=== PATIENT | female | born 1985 | race Two or more races ===

== ENCOUNTER 2021-02-07 15:37 | Observation (INO) | payer MEDICAID ==
[~2021-02-07] VITALS: Ht 160 cm; Wt 74.4 kg
[2021-02-07] MEDS ORDERED: PREN-96 PO (16:44)
== END 2021-02-07 17:00 | disposition home or self-care (01) ==
LOC: LDRP 15:37
PROVIDERS: ADMIT Obstetrics & Gynecology; ATTEND Obstetrics & Gynecology
DX: O24.419 Gestational diabetes mellitus in pregnancy, unspecified control (principal); Z3A.33 33 weeks gestation of pregnancy; Z88.0 Allergy status to penicillin
CPT/HCPCS: 59025; 76818; 81002; 82948; 82962; G0378

== ENCOUNTER 2021-02-14 10:19 | Observation (INO) | payer MEDICAID ==
[~2021-02-14 10:19] MED LIST: PREN-96 PO
[2021-02-14] MEDS ORDERED: GLYB1.257 PO (16:57)
== END 2021-02-14 17:16 | disposition home or self-care (01) ==
LOC: LDRP 16:06
PROVIDERS: ADMIT Obstetrics & Gynecology; ATTEND Obstetrics & Gynecology
DX: O24.419 Gestational diabetes mellitus in pregnancy, unspecified control (principal); Z3A.34 34 weeks gestation of pregnancy
CPT/HCPCS: 59025; 76818; 81002; 82962; 94760; G0378; G0379

== ENCOUNTER 2021-02-18 10:05 | Observation (INO) | payer MEDICAID ==
[~2021-02-18 10:05] MED LIST changes: +GLYB1.257 PO
== END 2021-02-18 12:39 | disposition home or self-care (01) ==
LOC: LDRP 10:40
PROVIDERS: ADMIT Obstetrics & Gynecology; ATTEND Obstetrics & Gynecology
DX: O24.419 Gestational diabetes mellitus in pregnancy, unspecified control (principal); Z3A.34 34 weeks gestation of pregnancy
CPT/HCPCS: 59025; 76818; 81002; 82962; 94760; G0378

== ENCOUNTER 2021-02-25 11:15 | Observation (INO) | payer MEDICAID | END 2021-02-25 14:12 | disposition home or self-care (01) | LOC: LDRP 11:15 | PROVIDERS: ADMIT Obstetrics & Gynecology; ATTEND Obstetrics & Gynecology | DX: O60.03 Preterm labor without delivery, third trimester (principal); O24.419 Gestational diabetes mellitus in pregnancy, unspecified control; Z3A.35 35 weeks gestation of pregnancy; Z88.0 Allergy status to penicillin | CPT/HCPCS: 59025; 76818; 81002; 82948; 82962; 94760; G0378 ==

== ENCOUNTER 2021-03-04 08:34 | Observation (INO) | payer MEDICAID ==
[~2021-03-04] VITALS: Ht 160 cm; Wt 72.6 kg
== END 2021-03-04 10:38 | disposition home or self-care (01) ==
LOC: LDRP 09:01
PROVIDERS: ADMIT Obstetrics & Gynecology; ATTEND Obstetrics & Gynecology
DX: O24.419 Gestational diabetes mellitus in pregnancy, unspecified control (principal); Z3A.36 36 weeks gestation of pregnancy; Z79.899 Other long term (current) drug therapy; Z98.890 Other specified postprocedural states
CPT/HCPCS: 59025; 76818; 81002; 82948; 82962; 94760; G0378; G0379

== ENCOUNTER 2021-03-06 08:52 | Observation (INO) | payer MEDICAID ==
[~2021-03-06] VITALS: Ht 160 cm; Wt 72.6 kg
== END 2021-03-07 11:25 | disposition home or self-care (01) ==
LOC: LDRP 03-07 09:30
PROVIDERS: ADMIT Obstetrics & Gynecology; ATTEND Obstetrics & Gynecology
DX: O24.419 Gestational diabetes mellitus in pregnancy, unspecified control (principal); Z3A.37 37 weeks gestation of pregnancy; Z88.0 Allergy status to penicillin
CPT/HCPCS: 59025; 76818; 81002; 82948; 82962; G0378; G0379

== ENCOUNTER 2021-03-11 08:41 | Observation (INO) | payer MEDICAID ==
[~2021-03-11] VITALS: Ht 160 cm; Wt 73.0 kg
== END 2021-03-11 11:45 | disposition home or self-care (01) ==
LOC: LDRP 09:21
PROVIDERS: ADMIT Obstetrics & Gynecology; ATTEND Obstetrics & Gynecology
DX: O24.419 Gestational diabetes mellitus in pregnancy, unspecified control (principal); Z3A.37 37 weeks gestation of pregnancy; Z88.0 Allergy status to penicillin
CPT/HCPCS: 59025; 76818; 81002; 82948; 82962; G0378

== ENCOUNTER 2021-03-13 08:14 | Observation (INO) | payer MEDICAID | END 2021-03-13 09:40 | disposition home or self-care (01) | LOC: LDRP 08:14 | PROVIDERS: ADMIT Obstetrics & Gynecology; ATTEND Obstetrics & Gynecology | DX: O24.415 Gestational diabetes mellitus in pregnancy, controlled by oral hypoglycemic drugs (principal); Z3A.37 37 weeks gestation of pregnancy; Z79.84 Long term (current) use of oral hypoglycemic drugs; Z88.0 Allergy status to penicillin | CPT/HCPCS: 59025; 76818; 81002; 82948; 82962; G0378 ==

== ENCOUNTER 2021-03-14 10:20 | Observation (INO) | payer MEDICAID | END 2021-03-17 10:22 | disposition home or self-care (01) | LOC: LDRP 03-17 08:15 | PROVIDERS: ADMIT Obstetrics & Gynecology; ATTEND Obstetrics & Gynecology | DX: O24.419 Gestational diabetes mellitus in pregnancy, unspecified control (principal); Z3A.38 38 weeks gestation of pregnancy; Z88.0 Allergy status to penicillin | CPT/HCPCS: 59025; 76818; 81002; 82948; 82962; 94760; G0378 ==

== ENCOUNTER 2021-03-19 10:57 | Observation (INO) | payer MEDICAID | END 2021-03-19 13:15 | disposition home or self-care (01) | LOC: LDRP 10:57 | PROVIDERS: ADMIT Obstetrics & Gynecology; ATTEND Obstetrics & Gynecology | DX: O24.419 Gestational diabetes mellitus in pregnancy, unspecified control (principal); Z3A.38 38 weeks gestation of pregnancy | CPT/HCPCS: 59025; 76818; 81002; 82962; 94760; G0378 ==

== ENCOUNTER 2021-03-21 08:16 | Inpatient (IN) | payer MEDICAID ==
[~2021-03-21] VITALS: Ht 160 cm; Wt 72.6 kg
[2021-03-21] MEDS ORDERED: PROMETHAZINE HCL 25 MG/ML 1ML IM PRN (21:15)
[2021-03-21] MEDS ORDERED: DERMOPLAST 60ML BOTTLE TOP PRN (21:15)
[2021-03-21] MEDS ORDERED: LACT. RINGERS/OXYTOCIN 20UNITS 500 ML IV ONE ×2 (21:15→21:45)
[2021-03-21] MEDS ORDERED: WITCH HAZEL-GLYCERIN PAD TOP PRN (21:15)
[2021-03-21] MEDS ORDERED: LIDOCAINE 2%HCL (LOCAL ANESTH.) INJ 20ML MDV IJ PRN (21:15)
[2021-03-21] MEDS ORDERED: LACT. RINGERS/OXYTOCIN 20UNITS 1,000 ML IV SCH (21:15)
[2021-03-21] MEDS ORDERED: TERBUTALINE SULFATE 1 MG/ML 1ML VIAL SC PRN ×2 (21:15)
[2021-03-21] MEDS ORDERED: PHISODERM TOP SOLN 240ML BTL TOP PRN (21:15)
[2021-03-21] MEDS ORDERED: BUTORPHANOL TARTRATE 2 MG/1 ML VIAL IV PRN ×2 (21:15)
[2021-03-21] MEDS ORDERED: PROMETHAZINE HCL 25 MG/ML 1ML IV PRN (21:15)
[2021-03-21] MEDS: LACTATED RINGER'S 1,000 ML IV SCH (21:51)
[2021-03-21] MEDS ORDERED: ACCU-CHEK COMFORT CURVE STRIP VI SCH (22:00)
[2021-03-21 22:44] LABS: Basophils # (auto) 0 10 ^3/uL (0-0.2); Basophils % (auto) 0.2 % (0.0-2.0); Eosinophils # (auto) 0.1 10 ^3/uL (0-0.8); Eosinophils % (auto) 0.9 % (0.0-7.0); Hematocrit 37.2 % (36.0-46.0); Hemoglobin 12.9 g/dL (12.2-16.2); Lymphocytes # (auto) 1.9 10 ^3/uL (0.4-5.4); Lymphocytes % (auto) 26.2 % (10.0-50.0); Mean Corpuscular Hemoglobin 33.5 pg (28.0-32.0); Mean Corpuscular Hgb Conc. 34.7 g/dL (32.0-36.0); Mean Corpuscular Volume 96.5 fL (80.0-100.0); Monocytes # (auto) 0.7 10 ^3/uL (0-1.3); Monocytes % (auto) 9.6 % (0.0-12.0); Neutrophils # (auto) 4.6 10 ^3/uL (1.6-8.6); Neutrophils % (auto) 63.1 % (37.0-80.0); Red Blood Cells 3.86 10^6/uL (4.0-5.20); Red Cell Distribution Width 13.6 % (11.8-14.3); White Blood Cell 7.3 10^3/uL (4.4-10.8)
[2021-03-21 22:48] LABS: Urine Bacteria FEW /hpf (None Seen); Urine Blood Negative /uL (Negative); Urine WBC 12 /hpf (0 - 5)
[2021-03-21 23:00] LABS: Alcohol, Urine < 3.0 mg/dL (0-10); Amphetamine Screen, Urine NEGATIVE (NEGATIVE); Barbiturate Scree,Urine NEGATIVE (NEGATIVE); Benzodiazephine Screen, Urine NEGATIVE (NEGATIVE); Cannabinoid Screen, Urine NEGATIVE (NEGATIVE); Cocaine Screen, Urine NEGATIVE (NEGATIVE); Opiate Scree,Urine NEGATIVE (NEGATIVE); Phencyclidine Screen, Urine NEGATIVE (NEGATIVE)
[2021-03-21 23:00] LABS: Albumin 2.7 g/dL (3.4-5.0); Potassium 3.6 mmol/L (3.5-5.1)
[2021-03-21 23:01] LABS: INR 0.95 (0.9-1.15); Partial Thromboplastin Time 27.1 sec (23.6-33.0)
[2021-03-21 23:04] LABS: BUN/Creatinine Ratio 23.1; Bilirubin, Total 0.2 mg/dL (0.2-1.0); Total Protein 6.6 g/dL (6.4-8.2)
[2021-03-21] MEDS: miSOPROStol 50 MCG per PRE-CUT 1/2 TAB PO PRN (23:04)
[2021-03-22] MEDS: LACTATED RINGER'S 1,000 ML IV SCH ×3 (03:16→12:52)
[2021-03-22] MEDS: miSOPROStol 50 MCG per PRE-CUT 1/2 TAB PO PRN (03:47)
[2021-03-22] MEDS ORDERED: miSOPROStol 100 mcg TAB PR PRN (07:45)
[2021-03-22] MEDS ORDERED: miSOPROStol 100 mcg TAB SL PRN (07:45)
[2021-03-22] MEDS ORDERED: METHYLERGONOVINE MALEATE 0.2 MG/ML AMP IM PRN (07:45)
[2021-03-22] MEDS ORDERED: NALOXONE HCL 0.4 MG/ML VIAL IV ONE (12:00)
[2021-03-22] MEDS ORDERED: fentaNYL CITRATE 100 MCG/2 ML VL IV ONE (12:00)
[2021-03-22] MEDS ORDERED: LACTATED RINGER'S 1,000 ML IV ONE (12:00)
[2021-03-22] MEDS ORDERED: ROPIVACAINE HCL 200 ML EPI SCH (12:00)
[2021-03-22] MEDS ORDERED: LIDOCAINE HCL 2 %PF INJ 10ML AMP IJ ONE (12:00)
[2021-03-22] MEDS ORDERED: ePHEDrine SULFATE 50 MG/ML AMP IV ONE (12:00)
[2021-03-22] MEDS ORDERED: ACETAMINOPHEN 325 MG TAB PO PRN (15:45)
[2021-03-22] MEDS ORDERED: ONDANSETRON ODT 4 MG TAB PO PRN (15:45)
[2021-03-22] MEDS ORDERED: IBUPROFEN 800 MG TAB PO SCH (18:00)
[2021-03-22 19:00] VITALS: BP 103/57
[2021-03-22] MEDS: CLINDAMYCIN 600MG IV 50 ML IV SCH (19:08)
[2021-03-22] MEDS: IBUPROFEN 600 MG TAB PO PRN (19:09)
[2021-03-22] MEDS ORDERED: DOCUSATE SOD 100 MG CAP PO SCH (22:00)
[2021-03-22 22:56] VITALS: BP 107/59
[2021-03-23 03:17] VITALS: BP 104/64
[2021-03-23] MEDS: IBUPROFEN 600 MG TAB PO PRN ×2 (03:31→15:59)
[2021-03-23] MEDS: CLINDAMYCIN 600MG IV 50 ML IV SCH (03:31)
[2021-03-23 07:00] VITALS: BP 98/60
[2021-03-23 07:06] LABS: RPR Non Reactive (Non Reactive)
[2021-03-23 11:00] VITALS: BP 100/54
[2021-03-23 14:42] VITALS: BP 112/59
[2021-03-23 19:00] VITALS: BP 110/68
[2021-03-23 23:00] VITALS: BP 97/56
[2021-03-24] MEDS ORDERED: diphenhdrAMINE HCL 50 MG/1 ML VL IV ONE (00:30)
[2021-03-24 03:00] VITALS: BP 99/55
[2021-03-24 07:30] VITALS: BP 109/55
[2021-03-24] MEDS ORDERED: TETANUS-DIPTH-ACEL PERTUSSIS 0.5ML SYR Tdap IM ONE (09:00)
== END 2021-03-24 10:25 | disposition home or self-care (01) | DRG 560 ==
LOC: LDRP 20:51 → PREOBSVTOIN 20:55
PROVIDERS: ADMIT Obstetrics & Gynecology; ATTEND Obstetrics & Gynecology
PROC: 3E0P7VZ Introduction of Hormone into Female Reproductive, Via Natural or Artificial Opening (ICD-10-PCS; 2021-03-21)
PROC: 3E0DXGC Introduction of Other Therapeutic Substance into Mouth and Pharynx, External Approach (ICD-10-PCS; 2021-03-21)
PROC: 10D07Z6 Extraction of Products of Conception, Vacuum, Via Natural or Artificial Opening (ICD-10-PCS; principal; 2021-03-22)
PROC: 3E0R3BZ Introduction of Anesthetic Agent into Spinal Canal, Percutaneous Approach (ICD-10-PCS; 2021-03-22)
PROC: 00HU33Z Insertion of Infusion Device into Spinal Canal, Percutaneous Approach (ICD-10-PCS; 2021-03-22)
PROC: 10907ZC Drainage of Amniotic Fluid, Therapeutic from Products of Conception, Via Natural or Artificial Opening (ICD-10-PCS; 2021-03-22)
PROC: 3E0234Z Introduction of Serum, Toxoid and Vaccine into Muscle, Percutaneous Approach (ICD-10-PCS; 2021-03-24)
DX: O69.81X0 Labor and delivery complicated by cord around neck, without compression, not applicable or unspecified (principal); Z37.0 Single live birth; O24.425 Gestational diabetes mellitus in childbirth, controlled by oral hypoglycemic drugs; Z3A.39 39 weeks gestation of pregnancy; Z88.1 Allergy status to other antibiotic agents; Z51.5 Encounter for palliative care; Z20.822 Contact with and (suspected) exposure to COVID-19; Z23 Encounter for immunization
CPT/HCPCS: 36415; 59025; 59409; 62282; 80053; 80307; 81001; 81002; 82948; 82962; 85025; 85610; 85730; 86592; 86850; 86900; 86901; 87426; 90715; 94760; 96360; 96361; 96365; 96366; 96372; G0378; J2590; J3490

== ENCOUNTER 2023-06-15 15:58 | Emergency (ER) | payer MEDICAID, OTHER ==
[~2023-06-15] VITALS: Ht 160 cm; Wt 64.1 kg
[2023-06-15 17:41] LABS: Basophils # (auto) 0 10 ^3/uL (0-0.2); Basophils % (auto) 0.3 % (0.0-2.0); Eosinophils # (auto) 0.1 10 ^3/uL (0-0.8); Eosinophils % (auto) 0.7 % (0.0-7.0); Hematocrit 41.5 % (36.0-46.0); Hemoglobin 13.8 g/dL (12.2-16.2); Lymphocytes # (auto) 1.9 10 ^3/uL (0.4-5.4); Lymphocytes % (auto) 19.3 % (10.0-50.0); Mean Corpuscular Hgb Conc. 33.3 g/dL (32.0-36.0); Mean Corpuscular Volume 93.2 fL (80.0-100.0); Monocytes # (auto) 0.6 10 ^3/uL (0-1.3); Monocytes % (auto) 5.8 % (0.0-12.0); Neutrophils # (auto) 7.4 10 ^3/uL (1.6-8.6); Neutrophils % (auto) 73.9 % (37.0-80.0); Red Blood Cells 4.45 10^6/uL (4.0-5.20); Red Cell Distribution Width 13.2 % (11.8-14.3)
[2023-06-15 22:02] LABS: Urine Bacteria None Seen /hpf (None Seen)
[2023-06-15 22:45] LABS: Urine Blood 3+ /uL (Negative); Urine Clarity Turbid (Clear); Urine Color Light-Red (Yellow); Urine Protein, UAD 1+ (Negative); Urine Specific Gravity 1.009 (1.001-1.035); Urine Urobilinogen Normal (Negative); Urine WBC 387 /hpf (0 - 5); Urine WBC Clumps PRESENT /hpf (None Seen); Urine pH 5.5 (5.0-9.0)
[2023-06-15] MEDS ORDERED: NITR-87 PO (23:24)
[2023-06-16] MEDS: NITROFURANTOIN 100 mg CAP PO ONE (00:39)
[2023-06-16] MEDS: SODIUM CHLORIDE 0.9% 1,000 ML IV ONE (00:39)
[2023-06-16 01:15] VITALS: BP 113/46; PULSE 84; RESP 19; O2SAT 97
== END 2023-06-16 01:17 | disposition home or self-care (01) ==
LOC: ER 15:58
DX: O20.0 Threatened abortion (principal); R10.2 Pelvic and perineal pain; O23.41 Unspecified infection of urinary tract in pregnancy, first trimester; N39.0 Urinary tract infection, site not specified; Z3A.08 8 weeks gestation of pregnancy; Z88.1 Allergy status to other antibiotic agents
CPT/HCPCS: 36415; 76801; 76817; 81001; 84702; 85025; 86900; 86901; 96360; 99284; J7030